=== PATIENT | female | born 1990 | race Two or more races ===

== ENCOUNTER 2024-05-12 01:08 | Emergency (ER) | payer BC, SELFPAY ==
[2024-05-12 01:09] VITALS: BMI 57.6
[2024-05-12 01:41] VITALS: BP 180/136; PULSE 83; RESP 18; TEMP 36.6; O2SAT 95
--- NOTE | 2024-05-12 02:17 | XR_ITS ---
Examination: CT soft tissue neck, without intravenous contrast. 2-D coronal reconstructions. 2-D sagittal reconstructions. Date and time of exam :May 12, 2024 at 0304 hrs. Indications: Left-sided neck pain facial numbness pain in the mastoid area beginning 5 days ago. CTDI: vol (mGy):15.96 DLP: (mGycm):411 Technique: 1.25 mm axial sections of the neck of the obtained. Coronal and sagittal reconstructions have been obtained. Low dose protocols were performed. One or more of the following dose reduction techniques were used; automated exposure control, adjustment of the mA and/or KV according to patient size, use of iterative reconstruction technique. Findings: Symmetrical nasopharynx oropharynx Bilateral carotid triangle lymph nodes, the largest 16 mm Bilateral submental lymph nodes mostly subcentimeter The larynx appears normal Thyroid lobes are not enlarged Symmetrical mastoid aeration Negative for otitis externa or otitis media Impression: Cervical lymphadenopathy which may be reactive, suggest 3 month follow-up ultrasound soft tissue neck as clinically warranted Negative for mastoiditis Negative for otitis media
--- NOTE | 2024-05-12 03:39 | EDNOTE_ITS ---
ED Neck Injury Pain RME/HPI General Chief Complaint: General Adult/Misc Complain Stated Complaint: NECK PAIN X 5 DAYS, LEFT FACE NUMBNESS Time Seen by Provider: 05/12/24 02:16 Arrival date/time: 05/12/24 01:08 33F with history of HTN and DM presents to ED with 5 days of worsening L neck pain w/o fall/trauma. There was 1 day of L facial numbness today. There may also be a new rash on L neck/ear area. Limitations: no limitations Related Data Previous Rx's ?Medication ?Instructions ?Recorded naproxen 500 mg tablet 500 mg PO BID PRN pain #30 tabs 12/29/18 prednisone 20 mg tablet 20 mg PO QDAY #3 tabs 12/29/18 acetaminophen 500 mg tablet 1,000 mg (2 x 500 mg) PO QID PRN 05/16/20 (Tylenol Extra Strength) fever or pain #30 tabs albuterol sulfate 90 mcg/actuation 2 puff inhalation QID PRN 05/16/20 aerosol inhaler shortness of breath or wheezing #18 grams azithromycin 250 mg tablet See Rx Instructions PO .COMPLEX #6 05/16/20 tabs amoxicillin 875 mg-potassium 1 tab PO BID 7 days #14 tabs 05/12/24 clavulanate 125 mg tablet Allergies Allergy/AdvReac Type Severity Reaction Status Date / Time No Known Allergies Allergy Verified 12/29/18 00:20 Review of Systems Review of Systems Systems Reviewed: All systems reviewed, normal except as documented Constitutional Constitutional: Reports system reviewed and no additional complaints, except as documented, Denies fever(s) and Denies headache(s) ENT Ears, Nose, Mouth, and Throat: Denies disequilibrium, Denies headache(s) and Reports neck pain Cardiovascular Cardiovascular: Reports system reviewed and no additional complaints, except as documented, Denies chest pain and Denies dyspnea Respiratory Respiratory: Reports system reviewed and no additional complaints, except as documented, Denies cough and Denies dyspnea Gastrointestinal Gastrointestinal: Reports system reviewed and no additional complaints, except as documented, Denies abdominal pain, Denies nausea and Denies vomiting Musculoskeletal Musculoskeletal: Reports as per HPI and Reports neck pain Neurologic Neurologic: Reports system reviewed and no additional complaints, except as documented, Denies confusion, Denies disequilibrium and Denies headache(s) Psychiatric Psychiatric: Denies confusion Past Medical History Social History SMOKING STATUS: Never smoker ED Exam General Limitations: Present no limitations General appearance: Present alert and in no apparent distress Head Head exam: Present atraumatic Eye Eye exam: Present normal appearance, PERRL and EOMI ENT ENT exam: Present normal exam, normal oropharynx and mucous membranes moist Neck Neck exam: Present full ROM, trachea midline and tenderness (L neck) Chest Chest inspection: Present normal inspection and symmetric chest wall rise Respiratory Respiratory exam: Present normal lung sounds bilaterally Cardiovascular Cardiovascular exam: Present regular rate, normal rhythm and normal heart sounds Abdominal Exam Abdominal exam: Present soft and normal bowel sounds Extremities Exam Extremities exam: Present normal inspection and full ROM Back Exam Back exam: Present normal inspection and full ROM Neurological Exam Neurological exam: Present alert, oriented X3 and CN II-XII intact Psychiatric Psychiatric exam: Present normal affect and normal mood Skin Skin exam: Present warm, dry, intact and normal color Course Quality Measures none Orders Category Date Time Status CT soft tissue neck wo con Stat Exams 05/12/24 02:17 Taken Amoxicillin/Pot Clav 875 [Augmentin 875] Med 05/12/24 04:53 Discontinued 1 tab PO X1 ONE Vital Signs Vital signs: Vital Signs Temperature 97.9 F 05/12/24 01:41 Pulse Rate 83 05/12/24 01:41 Respiratory Rate 18 05/12/24 01:41 Blood Pressure 180/136 H 05/12/24 01:41 Pulse Oximetry (%) 95 05/12/24 01:41 Oxygen Delivery Method Room Air 05/12/24 01:41 O2 at 95% on RA and WNLs Neck Pain MDM Narrative MDM Narrative:: 33F with history of HTN and DM presents to ED with 5 days of worsening L neck pain w/o fall/trauma. There was 1 day of L facial numbness today. There may also be a new rash on L neck/ear area. Physical exam reveals L neck tenderness, but no obvious redness or swelling. 2 small pimples, but no obvious vesicular rash. Clear ENT and lungs. No midline neck tenderness. ROM intact. Patient is afebrile, calm, and alert. CT reveals nonspecific cervical lymphadenopathy. Given DM status, will treat with ABX though patient counseled it could be viral. Source likely ENT vs skin as no signs of cellulitis or open wound. Patient data External records reviewed:: [facility] previous records Clinical information provided by:: patient Social determinants that could affect healthcare access:: none Patient has the following chronic illnesses:: DM and HTN How is presenting disease/condition affected by chronic disease/condition?: exacerbated by Evaluation data The following diagnostics were reviewed and interpreted by me:: radiology exam(s) Lab and/or radiology exams considered but not ordered:: ordered Interpretation Summary: above Medications / Prescriptions Medications or Prescriptions considered but not ordered:: ordered Medication administrations:: Medication Administration History Discontinued Medications Amoxicillin/Clavulanate Potassium (Amoxicillin/Pot Clav 875 Tablet) 1 tab PO X1 ONE Stop: 05/12/24 04:54 Last Admin: 05/12/24 04:59 Dose: 1 tab Documented By: CVL above Consultations Consultation(s) initiated? (list below): No Diagnosis Neck Differential Diagnosis: disc disorder of cervical region, whiplash injury to neck, closed subluxation of cervical spine, fracture of cervical spine without lesion of spinal cord, cervical radiculopathy, vertebral artery dissection, torticollis, cervical spondylosis, strain of neck muscle and other (cellulitis, shingles, abscess, neck pain, cervical lymphadenopathy ) Most likely diagnosis given after review of the tests above:: cervical lymphadenopathy Admission Indicated Admission indicated?: not indicated Admission Request Was there a request for admission?: No Disposition Plan Disposition Plan: Discharge Discharge Attestation Discharge Attestation: The patient and all family members were given an opportunity to ask questions and understood the discharge instructions. Discharge instructions specifically effects, indications for sooner follow up or return to the emergency department, and the expected course of current diagnosis. Patient condition: Stable Discharge Plan Plan Patient Disposition: HOME (Self Care) Disposition Comment: Stable Prescriptions/Referrals Prescriptions/Med Rec: New amoxicillin-pot clavulanate 875-125 mg tablet 1 tab PO BID 7 Days Qty: 14 0RF No Action prednisone 20 mg tablet 20 mg PO QDAY Qty: 3 0RF naproxen 500 mg tablet 500 mg PO BID PRN (Reason: pain) Qty: 30 0RF azithromycin 250 mg tablet See Rx Instructions .ROUTE .COMPLEX Qty: 6 0RF Rx Instructions: take 500 mg today (day 1), then 250 mg for 4 days (days 2-5) albuterol sulfate 90 mcg/actuation HFA aerosol inhaler 2 puff inhalation QID PRN (Reason: shortness of breath or wheezing) Qty: 18 0RF acetaminophen [Tylenol Extra Strength] 500 mg tablet 1,000 mg PO QID PRN (Reason: fever or pain) Qty: 30 0RF Problem List Clinical Impression: Cervical lymphadenopathy Patient/Caregiver Discharge Instructions Education Materials: Lymphadenopathy Additional Instructions: Please follow-up with PCP within 24-48 hours and return immediately if symptoms worsen. Keep an eye out for shingles-like rash. Print Language: Belarusian Stand Alone Forms: Patient Portal Info Letter PA/MANAGER PROVIDER RELATIONS Supervising Physician IVETTE/SHARIF Supervising Physician: Dr. Gibson
--- NOTE | 2024-05-12 04:45 | PRELIM_ITS ---
CT scan of the neck without intravenous contrast (axial sections with sagittal and coronal reformats) . May 12, 2024 at 0303 hoursClinical History: Left mastoid/neck pain.Comparison: No prior study is available for comparison.Findings: The nasopharynx, oropharynx, hypopharynx, supraglottic and infr aglottic larynx, vocal cords and upper trachea are unremarkable. The epiglottis and aryepiglottic fol ds appear unremarkable.Prominent submental, submandibular and upper cervical lymph nodes are seen, li jose reactive. The superficial soft tissues of the neck are unremarkable. The osseous structures are unremarkable. Mastoid air cells are clear bilaterally.Impression:No evidence of mastoiditis.Prominent submental, submandibular and upper cervical lymph nodes, likely reactive. Otherwise,unremarkable CT scan of the neck on this noncontrast study. Report Electronically Signed By: Tahir Lopez 4 4:44:30 AM [EST]
[2024-05-12] MEDS: AMOXICILLIN/POT CLAV 875 TABLET 1 TAB PO (04:59)
[2024-05-12 05:01] VITALS: RESP 18
== END 2024-05-12 05:01 | disposition home or self-care (01) ==
LOC: SERX 05:41
PROVIDERS: Emergency Provider Emergency Medicine; PCP Nurse Practitioner Family
DX: R59.0 Localized enlarged lymph nodes (principal); E11.9 Type 2 diabetes mellitus without complications; I10 Essential (primary) hypertension
CPT/HCPCS: 70490; 99284; A9270

== ENCOUNTER 2024-06-25 21:57 | Emergency (ER) | payer BC, SELFPAY ==
[2024-06-25 21:58] VITALS: BMI 56.7
[2024-06-25 22:21] VITALS: BP 178/103; PULSE 91; RESP 20; TEMP 36.8; O2SAT 96
--- NOTE | 2024-06-25 22:23 | XR_ITS ---
Examination: Hand, right 3 views Technique: Hand AP, oblique, lateral 3 views Date and time of exam: June 25, 2024 1035 hrs. Indications: Patient fell today with into the right hand, right first digit pain. Findings: Adequate bone density No acute fracture No dislocation Impression: No acute fracture
--- NOTE | 2024-06-25 22:24 | PD.EDHAND ---
Upper Extremity Injury RME/HPI General Chief Complaint: Hand/Wrist Problems Stated Complaint: RIGHT HAND PAIN AFTER FALL Time Seen by Provider: 06/25/24 21:59 Arrival date/time: 06/25/24 21:57 33 year old female present to emergency room with c/o of right hand injury today. LOCATION: hand SEVERITY: Symptoms are described as being severe with limitations on activities of daily living QUALITY: Symptoms are described as being dull or achy CONTEXT: GLF today DURATION/TIMING: The symptoms started approximately immediately prior to arrival ago and have been constant this then. ASSOCIATED SYMPTOMS: The patient is unable to identify any other associated symptoms. MODIFYING FACTORS: The patient is unable to identify any alleviating or aggravating symptoms. PERTINENT ROS: no fevers, no headache, no neck or chest pain, no unexplained nausea or vomiting, no focal neurological deficits REVIEW OF SYSTEMS: See History of Present Illness - with the exception of those mentioned in the history of present illness, all other systems reviewed and reported as negative GENERAL: In general the patient is awake, interactive, in an emergency department gurney. HEAD/EYES/EARS/NOSE/THROAT: normo-cephalic, atraumatic, mucus membranes are moist, anicteric, palpebral conjunctiva is pink, trachea is midline. NEUROLOGICAL: cranio-facial features are symmetric, moves all four extremities equally without obvious limitations or weakness. EXTREMITY: right base of thumb tenderness, no wrist pain. no tenderness to palpation over the long bones or large joints of the bilateral lower extremities, no joint swelling, no joint erythema, no signs of trauma, no unilateral leg swelling and no peripheral edema. SKIN: warm, dry, well-perfused, no jaundice, no rash, no telangiectasias or petechia. PSYCH: calm, cooperative, no evidence of psychosis or agitation Related Data Previous Rx's ?Medication ?Instructions ?Recorded naproxen 500 mg tablet 500 mg PO BID PRN pain #30 tabs 12/29/18 prednisone 20 mg tablet 20 mg PO QDAY #3 tabs 12/29/18 acetaminophen 500 mg tablet 1,000 mg (2 x 500 mg) PO QID PRN 05/16/20 (Tylenol Extra Strength) fever or pain #30 tabs albuterol sulfate 90 mcg/actuation 2 puff inhalation QID PRN 05/16/20 aerosol inhaler shortness of breath or wheezing #18 grams azithromycin 250 mg tablet See Rx Instructions PO .COMPLEX #6 05/16/20 tabs Allergies Allergy/AdvReac Type Severity Reaction Status Date / Time No Known Allergies Allergy Verified 06/25/24 21:58 Course Course Course Narrative: Plan xray to rule out fracture vs sprain/contusion rice protocol premade thumb spica take tylenol or motrin as need return to ED if symptoms xray: Findings: Adequate bone density No acute fracture No dislocation Impression: No acute fracture Quality Measures none Orders Category Date Time Status Splint / Immobilizer STAT Care 06/25/24 23:23 Ordered XR hand comp RT min 3V Stat Exams 06/25/24 22:23 Completed Vital Signs Vital signs: Vital Signs Temperature 98.3 F 06/25/24 22:21 Pulse Rate 91 06/25/24 22:21 Respiratory Rate 20 06/25/24 22:21 Blood Pressure 178/103 H 06/25/24 22:21 Pulse Oximetry (%) 96 06/25/24 22:21 Oxygen Delivery Method Room Air 06/25/24 22:21 Extremity Injury Patient data External records reviewed:: None Clinical information provided by:: patient Social determinants that could affect healthcare access:: none Patient has the following chronic illnesses:: n/a How is presenting disease/condition affected by chronic disease/condition?: no chronic disease Evaluation data The following diagnostics were reviewed and interpreted by me:: radiology exam(s) Lab and/or radiology exams considered but not ordered:: n.a Interpretation Summary: xray; Findings: Adequate bone density No acute fracture No dislocation Impression: No acute fracture Medications / Prescriptions Medications or Prescriptions considered but not ordered:: n/a Medication administrations:: n/a Consultations Consultation(s) initiated? (list below): No Diagnosis Upper Extremity Injury Differential Diagnosis: sprain and strain of wrist, fracture of hand and other (thumb contusion, strain/sprain ) Most likely diagnosis given after review of the tests above:: thumb sprain Admission Indicated Admission indicated?: not indicated Admission Request Was there a request for admission?: No Disposition Plan Disposition Plan: Discharge Discharge Attestation Discharge Attestation: The patient and all family members were given an opportunity to ask questions and understood the discharge instructions. Discharge instructions specifically effects, indications for sooner follow up or return to the emergency department, and the expected course of current diagnosis. Patient condition: Stable Discharge Plan Plan Patient Disposition: HOME (Self Care) Health Concerns: Follow with PMD as directed Take tylenol or motrin as need Return to ED if sx worsen Prescriptions/Referrals Prescriptions/Med Rec: No Action prednisone 20 mg tablet 20 mg PO QDAY Qty: 3 0RF naproxen 500 mg tablet 500 mg PO BID PRN (Reason: pain) Qty: 30 0RF azithromycin 250 mg tablet See Rx Instructions .ROUTE .COMPLEX Qty: 6 0RF Rx Instructions: take 500 mg today (day 1), then 250 mg for 4 days (days 2-5) albuterol sulfate 90 mcg/actuation HFA aerosol inhaler 2 puff inhalation QID PRN (Reason: shortness of breath or wheezing) Qty: 18 0RF acetaminophen [Tylenol Extra Strength] 500 mg tablet 1,000 mg PO QID PRN (Reason: fever or pain) Qty: 30 0RF Referrals: No Primary/Family,Physician [Primary Care Provider] - In 1 week Problem List Clinical Impression: Sprain of hand, thumb, right Patient/Caregiver Discharge Instructions Education Materials: ED Finger Sprain Print Language: Romanian Stand Alone Forms: Marybeth Award Info., Patient Portal Info Letter
== END 2024-06-26 00:08 | disposition home or self-care (01) ==
PROVIDERS: Emergency Provider Emergency Medicine
DX: S63.601A Unspecified sprain of right thumb, initial encounter (principal); W19.XXXA Unspecified fall, initial encounter
CPT/HCPCS: 29131; 73130; 99283

== ENCOUNTER → 2024-07-13 | Outpatient (CLI) | payer BC, SELFPAY ==
[2024-07-13 10:10] LABS: Basophils % (Auto) 1 % (0-2.5); Eosinophils # (Auto) 0.4 Thou/mm3 (0.0-0.5); Eosinophils % (Auto) 5 % (0-10); Hematocrit 43.6 % (36.0-46.0); Hemoglobin 14.3 g/dL (12.0-16.0); Immature Granulocytes % (Auto) 0 % (0-0); Immature Granulocytes Auto 0.02 Thou/mm3 (0.00-0.00); Lymphocytes # (Auto) 2.5 Thou/mm3 (1.0-4.8); Lymphocytes % (Auto) 30 % (10-50); Mean Corpuscular HGB Conc 32.8 g/dl (31.0-37.0); Mean Corpuscular Hemoglobin 28.1 pg (25.0-35.0); Mean Corpuscular Volume 86 fL (80-100); Monocytes # (Auto) 0.4 Thou/mm3 (0.0-0.8); Monocytes % (Auto) 5 % (0-12); Neutrophils % (Auto) 59 % (37-80); Nucleated Red Blood Cell % 0 /100 WBC (0); Platelet Count 286 Thou/mm3 (140-440); RDW Standard Deviation 42.2 fL (36.4-46.3); Red Blood Count 5.08 Miln/mm3 (4.00-5.20); White Blood Count 8.5 Thou/mm3 (3.6-11.0)
[2024-07-13 10:31] LABS: Glucose Estimated Average 163 mg/dL (80-131); Hemoglobin A1C 7.3 % Hgb (4.8-6.0)
[2024-07-13 10:42] LABS: Collection Type, Urine Clean Catch
[2024-07-13 10:45] LABS: Alanine Aminotransferase 53 U/L (10-49); Albumin, Serum 4.3 gm/dL (3.5-5.0); Albumin/Globulin Ratio 1.3 (1.2-2.2); Alkaline Phosphatase 98 U/L (46-116); Anion Gap 8 (7-16); Aspartate Amino Transferase 35 U/L (0-34); BUN/Creatinine Ratio 18 Ratio (12-20); Bilirubin,Total 0.4 mg/dL (0.3-1.2); Blood Urea Nitrogen 14 mg/dL (9-23); Carbon Dioxide 28.1 mMol/L (20.0-31.0); Cardiac Risk Estimate 4.6 RATIO (3.7-5.6); Chloride 103 mMol/L (98-107); Cholesterol 212 mg/dL (132-200); Creatinine (Component) 0.8 mg/dL (0.6-1.3); Globulin 3.2 gm/dL (2.3-3.5); Glucose 191 mg/dL (74-106); HDL Cholesterol 46 mg/dL (40-60); LDL Cholesterol,Calculated 131 mg/dL (0-130); Osmolality,Calculated 283 (275-295); Potassium 4.7 mMol/L (3.4-5.1); Sodium 139 mMol/L (136-145); Total Protein 7.5 gm/dL (5.7-8.2); Triglycerides 173 mg/dL (30-150); eGFR > 60 See Note
[2024-07-13 11:05] LABS: Free T4 (Free Thyroxine) 1.33 ng/dL (0.89-1.76); Thyroid Stimulating Hormone 3.22 uIU/mL (0.55-4.78)
[2024-07-13 11:41] LABS: Creatinine MALB Rnd Ur 114 mg/dL (30-125); Microalbumin Creat Ratio 16 mg/gCrea (<30); Microalbumin, Random Urine 18 mg/L (0-300)
[2024-07-13 11:44] LABS: Bacteria,Urine Rare; Bilirubin,Urine Negative (Negative); Blood,Urine Negative (Negative); Clarity,Urine Clear (Clear/Hazy); Color,Urine Lt-Yellow (Lt Yel-Yel); Glucose, Urine 1+ (Negative); Ketones,Urine Negative (Negative); Leukocyte Esterase,Urine Negative (Negative); Nitrite,Urine Negative (Negative); Protein,Urine Negative (Neg - Trace); RBC,Urine < 1 /hpf (0-3); Specific Gravity,Urine 1.022 (1.001-1.035); Squamous Epithelial Cell,Urine 1 /hpf (0-5); Urobilinogen,Urine Negative mg/dL (0.0-1.0); WBC,Urine 1 /hpf (0-5)
[2024-07-13 23:56] LABS: Vitamin D 25 Hydroxy Total 8.1 ng/mL (7.3-40.2)
== END | disposition home or self-care (01) ==
LOC: COPL 09:19
PROVIDERS: PCP Nurse Practitioner Family; Referring Provider Nurse Practitioner Family; Visit Provider Nurse Practitioner Family
DX: E11.65 Type 2 diabetes mellitus with hyperglycemia (principal); E78.2 Mixed hyperlipidemia; I10 Essential (primary) hypertension
CPT/HCPCS: 36415; 80053; 80061; 81001; 82043; 82306; 82570; 83036; 84439; 84443; 85025; 87086

== ENCOUNTER 2025-04-02 01:03 | Emergency (ER) | payer BC, SELFPAY ==
[2025-04-02 01:04] VITALS: BMI 56.7
--- NOTE | 2025-04-02 01:06 | EKG_ITS ---
[facility] Test Date: 2025-04-02 Pat Name: BART MONTALVO Department: Room: - Gender: Female Property Man: : 1990 Requested By: ED Temporary Provider Order Number: [id number] Reading MD: ED Temporary Provider Measurements Intervals [place] Rate: 74 P: 10 [place]: 179 QRS: -27 QRSD: 101 T: 48 QT: 401 QTc: 446 Interpretive Statements SINUS RHYTHM BORDERLINE LEFT AXIS DEVIATION [QRS AXIS < -20] INCOMPLETE RIGHT BUNDLE BRANCH BLOCK [90+ ms QRS DURATION, TERMINAL R IN V1/V2, 40+ ms S IN I/aVL/V4/V5/V6] MODERATE VOLTAGE CRITERIA FOR LVH, CONSIDER NORMAL VARIANT [MEETS CRITERIA IN ONE OF: R(aVL), S(V1), R(V5), R(V5/V6)+S(V1)] No previous ECG available for comparison /store/S0/[id number].pdf
[2025-04-02 01:17] VITALS: BP 164/113; BP 171/126; PULSE 72; RESP 20; TEMP 36.7; O2SAT 95
--- NOTE | 2025-04-02 01:38 | XR_ITS ---
Examination: Abdomen sonogram, Limited Date and time of exam: April 02, 2025, 0200 hours INDICATIONS: Mid and upper abdominal pain radiating to the back beginning 2 days ago. Technique: Real-time dang scale transabdominal sonographic images of the upper abdomen obtained. Findings: Positive for gallstones Gallbladder wall is thickened 0.37 cm Common bile duct 0.4 cm Pancreatic head 3.0 cm Liver 19.7 cm fatty infiltration Normal hepatopetal portal venous flow Patent IVC IMPRESSION: Cholelithiasis, gallbladder wall thickening, clinical correlation advised As clinically warranted, consider HIDA scan or MRCP follow-up
--- NOTE | 2025-04-02 01:38 | PD.EDRME ---
Rapid Medical Screening Exam E Arrival date/time: 04/02/25 01:03 This is a case of 34-year-old female with no medical history came in in the emergency room due to epigastric pain and chest pain for 2 days radiating to the right shoulder worsening of the symptoms this patient decided to start consult here in the emergency room Chief Complaint: Abdominal Pain Time Seen by Provider: 04/02/25 01:17 Vital signs: Vital Signs Temperature 98.1 F 04/02/25 01:17 Pulse Rate 72 04/02/25 01:17 Respiratory Rate 20 04/02/25 01:17 Blood Pressure 171/126 H 04/02/25 01:17 Pulse Oximetry (%) 95 04/02/25 01:17 Oxygen Delivery Method Room Air 04/02/25 01:17 Exam: Mild tenderness epigastric area and RRR clear breath sounds Clinical Impression: Chest pain epigastric pain
[2025-04-02 01:53] LABS: Basophils # (Auto) 0.1 Thou/mm3 (0.0-0.2); Basophils % (Auto) 1 % (0-2.5); Eosinophils # (Auto) 0.6 Thou/mm3 (0.0-0.5); Eosinophils % (Auto) 7 % (0-10); Hematocrit 44.4 % (36.0-46.0); Hemoglobin 14.7 g/dL (12.0-16.0); Immature Granulocytes Auto 0.02 Thou/mm3 (0.00-0.00); Lymphocytes # (Auto) 3.2 Thou/mm3 (1.0-4.8); Lymphocytes % (Auto) 35 % (10-50); Mean Corpuscular HGB Conc 33.1 g/dl (31.0-37.0); Mean Corpuscular Hemoglobin 28.2 pg (25.0-35.0); Mean Corpuscular Volume 85 fL (80-100); Monocytes # (Auto) 0.5 Thou/mm3 (0.0-0.8); Monocytes % (Auto) 6 % (0-12); Neutrophils # (Auto) 4.7 Thou/mm3 (1.8-7.7); Neutrophils % (Auto) 52 % (37-80); Nucleated Red Blood Cell # 0.00 Thou/mm3 (0.00-0.00); Nucleated Red Blood Cell % 0 /100 WBC (0); Platelet Count 245 Thou/mm3 (140-440); RDW Standard Deviation 40.4 fL (36.4-46.3); Red Blood Count 5.21 Miln/mm3 (4.00-5.20); White Blood Count 9.0 Thou/mm3 (3.6-11.0)
[2025-04-02 02:11] LABS: B-Type Natriuretic Peptide < 20 pg/mL (0-100)
[2025-04-02 02:22] LABS: Alanine Aminotransferase 104 U/L (10-49); Albumin, Serum 4.7 gm/dL (3.5-5.0); Albumin/Globulin Ratio 1.6 (1.2-2.2); Alkaline Phosphatase 103 U/L (46-116); Anion Gap 8 (7-16); Aspartate Amino Transferase 63 U/L (0-34); BUN/Creatinine Ratio 11 Ratio (12-20); Bilirubin,Total 0.6 mg/dL (0.3-1.2); Blood Urea Nitrogen 9 mg/dL (9-23); Calcium 9.7 mg/dL (8.3-10.6); Calcium (Corrected) 9.7 mg/dL (8.5-10.1); Carbon Dioxide 29.7 mMol/L (20.0-31.0); Chloride 101 mMol/L (98-107); Creatinine (Component) 0.8 mg/dL (0.6-1.3); Estimated Creatinine Clearance 137.4 mL/min (>60); Globulin 3.0 gm/dL (2.3-3.5); Glucose 276 mg/dL (74-106); Lipase 49 U/L (12-53); Osmolality,Calculated 286 (275-295); Potassium 4.3 mMol/L (3.4-5.1); Sodium 139 mMol/L (136-145); Total Protein 7.7 gm/dL (5.7-8.2); Troponin I < 0.002 ng/mL (0.0-0.045); eGFR > 60 See Note
--- NOTE | 2025-04-02 03:41 | PRELIM_ITS ---
Right upper quadrant abdominal ultrasound. April 02, 2025 at 0201 hours Clinical history: Abdomen pain. Technique: Grayscale and color flow images of the right upper quadrant are provided. Hepatic and portal veins were also imaged with color flow images. Comparison: No prior study available. Findings: Limited evaluation due to body habitus. There is hepatomegaly. Fatty infiltration of the liver is seen. The main portal vein is patent and demonstrates normal color flow. There is no intrahepatic biliary ductal dilatation. Multiple gallbladder calculi are seen. There is mild gallbladder wall thickening (4 mm) without pericholecystic fluid. The common bile duct is normal in caliber at 4.0 mm. The pancreas is unremarkable to the extent visualized. The right kidney is unremarkable to the extent visualized. The inferior vena cava is patent. Impression: Limited evaluation as described. 1. Hepatomegaly with fatty liver. 2. Cholelithiasis with mild gallbladder wall thickening, of concerning for acute cholecystitis. Recommend clinical correlation. 3. Other findings as described. Report Electronically Signed By: Brady Cortes 04/02/2025 3:41:01 AM [EST]
[2025-04-02 04:39] VITALS: BP 161/96; PULSE 64; RESP 19; TEMP 36.4; O2SAT 96
[2025-04-02 05:35] LABS: Collection Type, Urine Clean Catch
[2025-04-02 05:37] LABS: HCG Qualitative,Urine Negative
[2025-04-02 05:39] LABS: Bacteria,Urine 2+; Bilirubin,Urine Negative (Negative); Blood,Urine Negative (Negative); Clarity,Urine Clear (Clear/Hazy); Color,Urine Lt-Yellow (Lt Yel-Yel); Glucose, Urine 4+ (Negative); Ketones,Urine Negative (Negative); Leukocyte Esterase,Urine Negative (Negative); Nitrite,Urine Positive (Negative); PH,Urine 6.5 (5.0-7.0); Protein,Urine Negative (Neg - Trace); RBC,Urine 14 /hpf (0-3); Specific Gravity,Urine 1.018 (1.001-1.035); Squamous Epithelial Cell,Urine 4 /hpf (0-5); Urobilinogen,Urine Negative mg/dL (0.0-1.0); WBC,Urine 5 /hpf (0-5)
--- NOTE | 2025-04-02 05:41 | PD.EDABDPN ---
ED Abdominal Pain RME/HPI General Chief Complaint: Abdominal Pain Stated complaint: MID UPPER ABDOMINAL PAIN Time seen by provider: 04/02/25 01:17 Arrival date/time: 04/02/25 01:03 RME / HPI RME / HPI narrative: 04/02/25 01:03 This is a case of 34-year-old female with no medical history came in in the emergency room due to epigastric pain and chest pain for 2 days radiating to the right shoulder worsening of the symptoms this patient decided to start consult here in the emergency room DR. SILVA MAIN ED EVALUATION: Morbidly obese patient presents with intermittent epigastric now RUQ intensifying pain radiating to the right flank postprandially, nausea without emesis. No fever or chills. No urinary frequency, urgency, or dysuria. PMH: Morbid obesity, DM, HTN PSH: Non-contributory Allergies: None Social: Non-smoker, Non-drinker, No illicit drug abuse Exam: Mild tenderness epigastric area and RRR clear breath sounds Impression: Chest pain epigastric pain Related Data Previous Rx's ?Medication ?Instructions ?Recorded naproxen 500 mg tablet 500 mg PO BID PRN pain #30 tabs 12/29/18 prednisone 20 mg tablet 20 mg PO QDAY #3 tabs 12/29/18 acetaminophen 500 mg tablet 1,000 mg (2 x 500 mg) PO QID PRN 05/16/20 (Tylenol Extra Strength) fever or pain #30 tabs albuterol sulfate 90 mcg/actuation 2 puff inhalation QID PRN 05/16/20 aerosol inhaler shortness of breath or wheezing #18 grams azithromycin 250 mg tablet See Rx Instructions PO .COMPLEX #6 05/16/20 tabs amoxicillin 500 mg-potassium 1 tab PO TID #30 tabs 04/02/25 clavulanate 125 mg tablet (Augmentin) hydrocodone 5 mg-acetaminophen 325 1 tab PO Q6H PRN pain #12 tabs 04/02/25 mg tablet hyoscyamine sulfate 0.125 mg 0.125 mg PO TID PRN cramping #10 04/02/25 tablet (Levsin) tabs omeprazole magnesium 10 mg oral 20 mg PO BID #30 ea 04/02/25 suspension,delayed release (Prilosec) Allergies Allergy/AdvReac Type Severity Reaction Status Date / Time No Known Allergies Allergy Verified 06/25/24 21:58 Review of Systems Review of Systems Systems Reviewed: All systems reviewed, normal except as documented Past Medical History Past Medical History CARDIAC: Positive Hypertension GASTROINTESTINAL: Positive Obesity ENDOCRINE: Positive Diabetes Mellitus Type 2 ED Exam Narrative Physical exam: GEN. APPEARANCE: The patient is alert awake oriented X-3 under mild distress c/o RUQ abdominal pain, morbidly obese. Patient has good eye contact. Patient is cooperative. VITALS: All vitals were reviewed and the pulse ox is 96%, which is normal according to my interpretation HEENT: Normocephalic, atraumatic and nontender. Pupils are equal and reactive. Oral mucosa is moist. NECK: Supple, nontender, no meningismus, no JVD. There is no thyromegaly and no lymphadenopathy. CHEST: Nontender on palpation no deformity and no crepitus. CARDIOVASCULAR: Heart regular rhythm, no murmur or gallop rub or extra beats. LUNGS: Clear to auscultation bilaterally with symmetrical chest rise. No laboring tachypnea or wheezing. No intercostal subcostal retraction. No rales and no rhonchi. ABDOMEN: Soft, obese, TTP of RUQ +/- Tracy's sign, no guarding or no acute peritonel findings. There are no abnormal masses palpated. No pulsatile masses or bruits. Active and normal bowel sounds. EXTREMITIES: Normal inspection and palpation. No edema. No cyanosis. Patient is able to move all 4 extremities well SKIN: Warm and dry, no rashes noted. MUSCULOSKELETAL: No lumbar or midline bony tenderness. There is no CVA tenderness. No paraspinal muscle spasm or tenderness. NEURO: Cranial nerves II through XII grossly intact. There are no focal neurologic deficits noted. GCS is 15 PSYCHIATRIC: Patient is in normal mood and affect, cooperative. LYMPHATICS: No major lymphadenopathy noted. Course Quality Measures none Orders Category Date Time Status EKG (ED ONLY) *Do not use* NOW Care 04/02/25 01:06 Completed EKG (ED ONLY) *Do not use* NOW Care 04/02/25 01:38 Completed EKG (ED Only) Stat Exams 04/02/25 01:06 Draft EKG (ED Only) Stat Exams 04/02/25 01:38 Ordered US gall bladder Stat Exams 04/02/25 01:38 Taken BNP [B-Type Natriuretic Peptide] Stat Lab 04/02/25 01:48 Completed CBC Stat Lab 04/02/25 01:48 Completed Comprehensive Metabolic Panel Stat Lab 04/02/25 01:48 Completed HCG Qualitative,Urine Stat Lab 04/02/25 05:23 Completed Lipase Stat Lab 04/02/25 01:48 Completed Troponin I Stat Lab 04/02/25 01:48 Completed Urinalysis Stat Lab 04/02/25 05:23 Completed Morphine* Inj Med 04/02/25 05:42 Discontinued 4 mg IM X1 ONE Prochlorperazine Inj [Compazine Inj] Med 04/02/25 05:42 Discontinued 5 mg IM X1 ONE Vital Signs Vital signs: Vital Signs Temperature 98.1 F 04/02/25 01:17 Pulse Rate 72 04/02/25 01:17 Respiratory Rate 20 04/02/25 01:17 Blood Pressure 171/126 H 04/02/25 01:17 Pulse Oximetry (%) 95 04/02/25 01:17 Oxygen Delivery Method Room Air 04/02/25 01:17 Abdominal Pain MDM MDM Narrative MDM Narrative:: Scribe Attestation: I, Nedra Pulido, am scribing for and in the presence of Dr. Silva. Provider Notation: Although this document has been carefully reviewed, there may still be some phonetic and other typographical errors. These errors are purely grammatical due to imperfections in the software program and should not be construed in any way to compromise the substance of the patient's medical care during this visit. Morbidly obese patient presents with intermittent epigastric now RUQ intensifying pain radiating to the right flank postprandially, nausea without emesis. No fever or chills. No urinary frequency, urgency, or dysuria. Please see PE findings. Laboratory markers, including CBC, demonstrate a normal WBC, no anemia or thrombocytopenia. Serum chemistries demonstrate mildly elevated blood sugar of 276 transaminase with normal L ipase and Total Bilirubin. Gall bladder US obtained demonstrates mild thickening of galll bladder wall, CBD normal, no pericystic fluid, multiple stones present without evidence of CBD dilitation, and evidence of fatty liver. Patient received IM analgesics and reports overall improvement. Will discuss with on-call General Surgeon to consider outpatient F/U. Discussed case in detail with general surgeon. Will discharge patient on imperic ABX, low-fat diet, low-dose narcotic analgesics/anti-emetics, anti-spasmotics, and F/U with general surgery as outpatient. Final diagnosis includes acute cholecystitis. Patient data External records reviewed:: [facility] previous records (Reviewed prior ED records from 06/25/24. Patient was seen for Sprain of hand, thumb, right.) Clinical information provided by:: patient Social determinants that could affect healthcare access:: none Patient has the following chronic illnesses:: Obesity, HTN, Type II DM How is presenting disease/condition affected by chronic disease/condition?: exacerbated by Evaluation data The following diagnostics were reviewed and interpreted by me:: lab results and radiology exam(s) Lab and/or radiology exams considered but not ordered:: None Interpretation Summary: RADIOLOGY Gall Bladder US: Findings: Limited evaluation due to body habitus. There is hepatomegaly. Fatty infiltration of the liver is seen. The main portal vein is patent and demonstrates normal color flow. There is no intrahepatic biliary ductal dilatation. Multiple gallbladder calculi are seen. There is mild gallbladder wall thickening (4 mm) without pericholecystic fluid. The common bile duct is normal in caliber at 4.0 mm. The pancreas is unremarkable to the extent visualized. The right kidney is unremarkable to the extent visualized. The inferior vena cava is patent. Impression: Limited evaluation as described. 1. Hepatomegaly with fatty liver. 2. Cholelithiasis with mild gallbladder wall thickening, of concerning for acute cholecystitis. Recommend clinical correlation. 3. Other findings as described. Medications / Prescriptions Medications or Prescriptions considered but not ordered:: None Medication administrations:: Medication Administration History Discontinued Medications Morphine Sulfate (Morphine Sulf Inj 4 Mg/Ml Vial) 4 mg IM X1 ONE Stop: 04/02/25 05:43 Last Admin: 04/02/25 06:27 Dose: 4 mg Documented By: Prochlorperazine Edisylate (Prochlorperazine Inj 5 Mg/Ml Vial 2 Ml) 5 mg IM X1 ONE; Protocol Stop: 04/02/25 05:43 Last Admin: 04/02/25 06:27 Dose: 5 mg Documented By: SE See above if any Consultations Consultation(s) initiated? (list below): Yes Consultation #1 (Physician, Specialty, Details): General surgeon made aware of the patient?s HPI, PMHx, lab and/or radiology results. Discussed treatment plan. Will consult an admission to the hospitalist. Diagnosis Differential diagnosis abdominal pain: abdominal pain, calculus of kidney, diverticulitis, gastroenteritis and small bowel obstruction Most likely diagnosis given after review of the tests above:: Acute cholecystitis, Biliary colic Admission Indicated Admission indicated?: not indicated Explain why admission is indicated or not indicated:: Patient does not meet admission criteria Admission Request Was there a request for admission?: No Disposition Plan Disposition Plan: Discharge Discharge Attestation Discharge Attestation: The patient and all family members were given an opportunity to ask questions and understood the discharge instructions. Discharge instructions specifically effects, indications for sooner follow up or return to the emergency department, and the expected course of current diagnosis. Patient condition: Stable Discharge Plan Plan Patient Disposition: HOME (Self Care) Discharge Disposition comment: Stable Prescriptions/Referrals Prescriptions/Med Rec: New hyoscyamine sulfate [Levsin] 0.125 mg tablet 0.125 mg PO TID PRN (Reason: cramping) Qty: 10 0RF amoxicillin-pot clavulanate [Augmentin] 500-125 mg tablet 1 tab PO TID Qty: 30 0RF Prilosec 10 mg susp,delayed release for recon 20 mg PO BID Qty: 30 0RF No Action prednisone 20 mg tablet 20 mg PO QDAY Qty: 3 0RF naproxen 500 mg tablet 500 mg PO BID PRN (Reason: pain) Qty: 30 0RF azithromycin 250 mg tablet See Rx Instructions .ROUTE .COMPLEX Qty: 6 0RF Rx Instructions: take 500 mg today (day 1), then 250 mg for 4 days (days 2-5) albuterol sulfate 90 mcg/actuation HFA aerosol inhaler 2 puff inhalation QID PRN (Reason: shortness of breath or wheezing) Qty: 18 0RF acetaminophen [Tylenol Extra Strength] 500 mg tablet 1,000 mg PO QID PRN (Reason: fever or pain) Qty: 30 0RF Referrals: Taylor Singleton FNP-C [Primary Care Provider] - In 1 week Christin Arnold MD [Physician, General Surgery] - In 1 week Referral Note: Patient with evidence of multiple gallstones and early cholecystitis. Please evaluate. Problem List Clinical Impression: Acute cholecystitis, Biliary colic Impression comment: Biliary colic cholecystitis Patient/Caregiver Discharge Instructions Discharge Activity: activity as tolerated Diet Instructions: Low-fat diet i.e. no butter oil or grease. Education Materials: Cholecystectomy, Treating Gallstones Print Language: Divehi Stand Alone Forms: Marybeth Award Info., Patient Portal Info Letter
[2025-04-02] MEDS: PROCHLORPERAZINE INJ 5 MG/ML VIAL 2 ML IM (06:27)
[2025-04-02] MEDS: MORPHINE SULF INJ 4 MG/ML VIAL IM (06:27)
[2025-04-02 07:11] VITALS: BP 141/91; PULSE 70; RESP 18; O2SAT 95
--- NOTE | 2025-04-02 07:16 | PD.EDADDENDU ---
Emergency Room Addendum Addendum Narrative: I PLaced an order for norco 5mg/325mg for DR. Trevino because he was not able to put order in computer. I had no contact with this patient.
== END 2025-04-02 07:16 | disposition home or self-care (01) ==
PROVIDERS: Nurse Practitioner Family; Emergency Provider Emergency Medicine
DX: K80.62 Calculus of gallbladder and bile duct with acute cholecystitis without obstruction (principal); E11.9 Type 2 diabetes mellitus without complications; E66.01 Morbid (severe) obesity due to excess calories; I10 Essential (primary) hypertension
CPT/HCPCS: 36415; 76705; 80053; 81001; 81025; 83690; 83880; 84484; 85025; 93005; 99282; J0780; J2270